=== PATIENT | female | born 1965 | race Caucasian/White ===

== ENCOUNTER 2016-10-04 18:54 | Emergency (ER) | payer OTHER ==
[~2016-10-04] VITALS: Ht 160 cm; Wt 99.9 kg
[~2016-10-04 18:54] MED LIST: ABIL15TA2 PO; GABA300C3 PO; HYDR-3535 PO; HYDR12.56 PO; SERT100 PO; ZOFR4TAB3 SL; ZYRT1SYP PO
[2016-10-04 19:00] VITALS: BP 133/99; PULSE 108; RESP 14; TEMP 98; O2SAT 97
[2016-10-04] MEDS ORDERED: SODIUM CHLOR 0.9% 1000 ML INJ 1,000 ML IV SCH (19:11)
--- NOTE | 2016-10-04 19:13 | PD ---
HPI Chief Complaint: Headache Time Seen by Provider: 19:05 Travel History International Travel<30 days: No Contact w/Intl Traveler<30days: No Traveled to known affect area: No History of Present Illness HPI 51-year-old female with history of migraines, here for evaluation of headache. Patient reports that the headache started at around 10:00 this morning and is mainly over the left side of her head. Headache is associated with photophobia and aura. She states that she felt as though the headache was going to occur just prior to onset of head pain. She tried her rizatriptan and Fioricet at home without relief of symptoms. Pain is severe, and she states she has not had a headache this bad in a couple of years. Pain is associated with nausea but no vomiting. She denies fevers or chills. No neck pain or stiffness. PFSH Past Medical History Depression: Yes Diminished Hearing: No Fibromyalgia: Yes GERD: Yes Headaches: Yes Immunizations Current: Yes Migraines: Yes Social History Alcohol Use: Yes Tobacco Use: No Substance Use: No Allergies-Medications (Allergen,Severity, Reaction): Coded Allergies: Oyster (Verified Adverse Reaction, Mild, 10/04/16) Scallop (Verified Adverse Reaction, Mild, 10/04/16) Reported Meds & Prescriptions Reported Meds & Active Scripts Active Reported Nexium 24 HR (Esomeprazole DR) 20 Mg Capdr 20 Mg PO DAILY Nabumetone 500 Mg Tab 500 Mg PO BID Rizatriptan Odt (Rizatriptan Benzoate) 10 Mg Tab Fioricet (Ngqxsiwxer-Ektaunzwuifqk-Qhrrxscf) 50-300-40 Mg Cap 1-2 Cap PO Q6H PRN Review of Systems Except as stated in HPI: all other systems reviewed are Neg Physical Exam Narrative GENERAL: Well-developed, well-nourished, comfortable, no acute distress, wearing sunglasses SKIN: Focused skin assessment warm/dry. No rash. HEAD: Atraumatic. Normocephalic. EYES: Pupils equal, round, 3 mm, reactive to light. No scleral icterus. No injection or drainage. ENT: No nasal bleeding or discharge. Mucous membranes pink and moist. NECK: Trachea midline. No JVD. No nuchal rigidity. CARDIOVASCULAR: Regular rate and rhythm. RESPIRATORY: No accessory muscle use. Clear to auscultation. Breath sounds equal bilaterally. GASTROINTESTINAL: Abdomen soft, non-tender, nondistended. MUSCULOSKELETAL: No obvious deformities. No clubbing. No cyanosis. No edema. NEUROLOGICAL: Awake and alert. No obvious cranial nerve deficits. Motor grossly within normal limits. Normal speech. PSYCHIATRIC: Appropriate mood and affect; insight and judgment normal. Data Data Last Documented VS Vital Signs Date Time Temp Pulse Resp B/P Pulse Ox O2 Delivery O2 Flow Rate FiO2 10/04/16 19:46 90 18 102/70 97 Room Air 10/04/16 19:14 98.0 Orders Basic Metabolic Panel (Bmp) (10/04/16 19:11) Complete Blood Count With Diff (10/04/16 19:11) Iv Access Insert/Monitor (10/04/16 19:11) Ecg Monitoring (10/04/16 19:11) Oximetry (10/04/16 19:11) Sodium Chlor 0.9% 1000 Ml Inj (Ns 1000 M (10/04/16 19:11) Sodium Chloride 0.9% Flush (Ns Flush) (10/04/16 19:15) Metoclopramide Inj (Reglan Inj) (10/04/16 19:15) Ketorolac Inj (Toradol Inj) (10/04/16 19:15) Metoclopramide Inj (Reglan Inj) (10/04/16 20:45) Diphenhydramine Inj (Benadryl Inj) (10/04/16 20:45) Labs Laboratory Tests Test 10/04/16 19:25 White Blood Count 6.6 TH/MM3 Red Blood Count 4.63 MIL/MM3 Hemoglobin 13.1 GM/DL Hematocrit 38.0 % Mean Corpuscular Volume 82.1 FL Mean Corpuscular Hemoglobin 28.2 PG Mean Corpuscular Hemoglobin 34.4 % Concent Red Cell Distribution Width 13.1 % Platelet Count 247 TH/MM3 Mean Platelet Volume 7.7 FL Neutrophils (%) (Auto) 47.7 % Lymphocytes (%) (Auto) 42.1 % Monocytes (%) (Auto) 5.8 % Eosinophils (%) (Auto) 3.8 % Basophils (%) (Auto) 0.6 % Neutrophils # (Auto) 3.1 TH/MM3 Lymphocytes # (Auto) 2.8 TH/MM3 Monocytes # (Auto) 0.4 TH/MM3 Eosinophils # (Auto) 0.3 TH/MM3 Basophils # (Auto) 0.0 TH/MM3 CBC Comment DIFF FINAL Differential Comment Sodium Level 145 MEQ/L Potassium Level 3.5 MEQ/L Chloride Level 110 MEQ/L Carbon Dioxide Level 25.8 MEQ/L Anion Gap 9 MEQ/L Blood Urea Nitrogen 15 MG/DL Creatinine 0.74 MG/DL Estimat Glomerular Filtration 83 ML/MIN Rate Random Glucose 129 MG/DL Calcium Level 8.7 MG/DL [facility] Medical Decision Making Medical Screen Exam Complete: Yes Emergency Medical Condition: Yes Medical Record Reviewed: Yes Differential Diagnosis Migraine headache, tension headache, cluster headache, SAH, meningitis/ encephalitis unlikely Narrative Course Initial vital signs show heart rate of 108 which improved to 90 after the patient received Reglan, Toradol, and a liter of IV fluids, blood pressure 133/ 99 which improved to 102 after 70 after pain controlled, pulse ox 97% on room air, oral temp of 98F. CBC is unremarkable. BMP is essentially unremarkable. The patient was given a liter of normal saline IV, 10 mg of IV Reglan, and 30 mg of IV Toradol with significant improvement in headache. She rates her headache now is a 4 out of 10. I will give her another dose of Reglan as well as a dose of Benadryl, and will reassess her. Upon reassessment the patient is feeling much better. She would like to be discharged home. PMD follow-up this week. Patient informed on when to return to the emergency department. She verbalizes understanding and agreement with plan. Diagnosis Primary Impression: Migraine Qualified Code: G43.909 - Migraine without status migrainosus, not intractable , unspecified migraine type Referrals: Primary Care Physician 3 days Additional Instructions: Follow-up with your primary care physician this week. Return to the emergency department for worsening symptoms or any other concerns. Scripts Metoclopramide (Reglan)10 Mg Tab10 Mg PO QID #30 TAB Ref 0 Prov:Jose Katz MD 10/04/16 Disposition: 01 DISCHARGE HOME Condition: Stable Jose Katz MD Oct 04, 2016 19:13
[2016-10-04 19:14] VITALS: BP 133/99; PULSE 108; RESP 18; TEMP 98; O2SAT 97
[2016-10-04] MEDS ORDERED: SODIUM CHLORIDE 0.9% FLUSH 10 ML FLUSH IV FLUSH PRN (19:15)
[2016-10-04] MEDS ORDERED: KETOROLAC TROMETHAMINE 30 MG/ML (IVP) VIAL IV PUSH ONE (19:15)
[2016-10-04] MEDS ORDERED: METOCLOPRAMIDE HCL 10 MG/2 ML VIAL IV PUSH ONE ×2 (19:15→20:45)
[2016-10-04 19:16] VITALS: RESP 18; O2SAT 97
[2016-10-04 19:34] LABS: AUTOMATED NEUTROPHIL # 3.1 TH/MM3 (1.8-7.7); BASOPHIL % 0.6 % (0.0-2.0); EOSINOPHIL # 0.3 TH/MM3 (0-0.4); EOSINOPHIL % 3.8 % (0.0-4.0); HEMO FLAGS DIFF FINAL; LYMPH % 42.1 % (9.0-44.0); LYMPHOCYTE # 2.8 TH/MM3 (1.0-4.8); MEAN CELL VOLUME 82.1 FL (80.0-100.0); MEAN CORPUSCULAR HEMOGLOBIN 28.2 PG (27.0-34.0); MEAN CORPUSCULAR HGB CONC 34.4 % (32.0-36.0); MONO % 5.8 % (0.0-8.0); NEUT % 47.7 % (16.0-70.0); PLATELET COUNT 247 TH/MM3 (150-450); RED BLOOD COUNT 4.63 MIL/MM3 (4.00-5.30); RED CELL DISTRIBUTION WIDTH 13.1 % (11.6-17.2); WHITE BLOOD COUNT 6.6 TH/MM3 (4.0-11.0)
[2016-10-04 19:41] LABS: POTASSIUM 3.5 MEQ/L (3.5-5.1)
[2016-10-04 19:44] LABS: BICARBONATE 25.8 MEQ/L (21.0-32.0)
[2016-10-04 19:46] VITALS: BP 102/70; PULSE 90; RESP 18; O2SAT 97
[2016-10-04] MEDS ORDERED: BUTA1CAP PO (19:52)
[2016-10-04] MEDS ORDERED: NABU1TAB37 PO (19:52)
[2016-10-04] MEDS ORDERED: ESOM1CAP6 PO (19:52)
[2016-10-04] MEDS ORDERED: RIZA10TA4 (19:52)
[2016-10-04] MEDS ORDERED: diphenhydrAMINE HCL 50 MG/ML VIAL IV PUSH ONE (20:45)
[2016-10-04] MEDS ORDERED: REGL10TA5 PO (20:57)
[2016-10-04 21:32] VITALS: BP 104/68; PULSE 74; RESP 18; O2SAT 97
== END 2016-10-04 21:42 | disposition home or self-care (01) ==
LOC: PHED 18:54
DX: G43.909 Migraine, unspecified, not intractable, without status migrainosus (principal); Z86.59 Personal history of other mental and behavioral disorders; Z87.39 Personal history of other diseases of the musculoskeletal system and connective tissue; Z87.19 Personal history of other diseases of the digestive system; Z86.69 Personal history of other diseases of the nervous system and sense organs
CPT/HCPCS: 80048; 85025; 96361; 96374; 96375; 96376; 99284; J1200; J1885; J2765; J7030